=== PATIENT | male | born 1950 | race Caucasian/White ===

== ENCOUNTER → 2018-07-23 | Outpatient (CLI) | payer OTHER ==
--- NOTE | 2018-07-23 16:29 | US ---
EXAM DESCRIPTION: Soft Tissue,Extremity: ULTRASOUND. CLINICAL HISTORY: 67 years Male ARM PAIN. Left forearm pain after lifting 50 pounds. Onset 06/05/2018. COMPARISON: None Available. TECHNIQUE: Transcutaneous scanning: Bourne-scale and Doppler modes. FINDINGS: Scanning of the left forearm musculature with no dominant soft tissue mass or distinct cyst. No large calcifications or parenchymal edema. No overlying skin changes. Normal venous waveforms in the radial and ulna veins with no echogenicity and no compression. Normal triphasic arterial waveforms radial and ulnar arteries. IMPRESSION: No soft tissue masses or fluid collections in the left forearm. Normal vascularity of the radial and ulnar arteries and veins. Electronically signed by: Tim Powell MD 07/23/2018 4:27 PM WORKERS COMPENSATION CLAIMS ANALYST
== END ==
LOC: US 10:27
PROVIDERS: ATTEND Family Medicine
DX: M79.632 Pain in left forearm (principal)

== ENCOUNTER → 2018-08-13 | Outpatient (CLI) | payer OTHER ==
--- NOTE | 2018-08-13 15:25 | CT ---
EXAM DESCRIPTION: Chest w/o Contrast : Computed Tomography. CLINICAL HISTORY: 67 years Male SOB COMPARISON: None. TECHNIQUE: Spiral-axial scans at 5 x 5 mm intervals through the lungs and thorax without IV contrast. 2.5 x 5 mm lung algorithm axial reconstructions. Sagittal and coronal 2.0 Mm reconstructions. Total Exam DLP: 833.72 mGy-cm. This exam was performed according to our departmental dose-optimization program which includes automated exposure control, adjustment of the mA and/or kV according to patient size and/or use of iterative reconstruction technique; to reduce radiation dose to as low as reasonably achievable (ALARA). Nodule measurements under 10 mm are given as mean value of 3 axes diameters. FINDINGS: Lungs and large airways: Solid 5 mm subpleural nodule in the right upper lobe anterolaterally on lung axial series 4, image 41. Scattered small groundglass densities bilateral lower lobes and right upper lobe. Pleural parenchymal scarring in the bilateral bases inferior right middle lobe and lingula. Subsegmental scarring right lower lobe. 4 mm nodule abutting the lateral left major fissure and the lateral basal segment of the left lower lobe on lung axial series 4, image 89. Pleural spaces: Bilateral focal pleural thickening and pleural parenchymal scarring as described. Mediastinum and Dorys: Evaluation limited due to lack of IV contrast negative. Great vessels and Heart: Evaluation limited due to lack of IV contrast. Small atherosclerotic calcifications of the coronary vessels. Soft tissues of neck base, axillae, and chest wall: Evaluation limited due to lack of IV contrast. 1.7 cm hypointense region in the right lobe of the thyroid gland. No soft tissue masses or fluid collections. Upper abdomen: Gallbladder visualized. No free air or free fluid in the included peritoneal space. Osseous structures: Spondylosis at several levels of the thoracic and lower cervical spine. Bilateral sternoclavicular arthrosis. Mild glenohumeral arthrosis bilaterally. No blastic or lytic lesions. IMPRESSION: 1. 5 mm subpleural solid nodule right upper lobe. If patient is high risk, consider optional chest CT scan from follow-up in one year interval, according to [facility] Best Practice guidelines. Following 2017 Fleischner Society recommendations for imaging follow-up of single solid lung nodule. Please see below*. 2. 1.7 cm hypoechoic region right thyroid lobe. Recommend thyroid ultrasound according to [facility] Best Practice guidelines. Please see below. *2017 Fleischner Society Recommendations for Single Solid Lung Nodule Follow-Up based on size (average of long- and short-axis diameters) <6 mm Low-Risk Patient: No routine follow-up <6 mm High-Risk Patient: Optional CT at 12 months Nodule greater than 1.5 cm on transverse plane and the patient older than 35 years old. Recommend thyroid US. Reference: J Am Luis Eduardo Radiol. 2015 Sep;12(2): 143-50. Electronically signed by: Tim Powell MD 08/13/2018 3:24 PM [facility]
== END ==
LOC: CT 10:10
PROVIDERS: ATTEND Family Medicine
DX: R06.02 Shortness of breath (principal); R05 Cough; R91.1 Solitary pulmonary nodule

== ENCOUNTER → 2018-08-15 | Outpatient (CLI) | payer OTHER ==
--- NOTE | 2018-08-15 11:40 | US ---
EXAM DESCRIPTION: Thyroid CLINICAL HISTORY: 67 years Male, NODULE COMPARISON: CT chest August 2018 TECHNIQUE: Real-time sonographic images of the thyroid are obtained. FINDINGS: Right lobe thyroid measures 4.9 x 2.0 x 1.6 cm. A 3 mm hypoechoic solid nodule in the midpole of the right lobe thyroid is seen. Tiny 1 mm calcification in the right lobe is seen. Left lobe thyroid measures 4.0 x 1.4 x 1.5 cm. Left lobe is diffusely homogeneous and normal in echogenicity without focal cystic or solid mass. Isthmus measures 5 mm. Small lymph node in the right neck measures 2.1 x 1 0.5 cm with central fatty hilum. IMPRESSION: Small 3 mm hypoechoic nodule in the right lobe of thyroid and small calcification of the right lobe thyroid are seen. These do not meet criteria for ultrasound-guided fine-needle aspiration. Electronically signed by: Meek Abreu MD 08/15/2018 11:39 AM HEALTH TYPE TECHNICIAN
== END ==
LOC: US 10:37
PROVIDERS: ATTEND Family Medicine
DX: E04.1 Nontoxic single thyroid nodule (principal)

== ENCOUNTER → 2018-08-22 | Outpatient (CLI) | payer OTHER | LOC: GMAE 10:57 | PROVIDERS: ATTEND Family Medicine | DX: E04.1 Nontoxic single thyroid nodule (principal); Z12.5 Encounter for screening for malignant neoplasm of prostate | CPT/HCPCS: 84439; 84443; 84481; G0103 ==

== ENCOUNTER → 2018-08-27 | Outpatient (CLI) | payer OTHER ==
--- NOTE | 2018-08-27 09:28 | US ---
EXAM DESCRIPTION: Aorta CLINICAL HISTORY: 67 years Male, AAA SCREENING COMPARISON: None. Sonogram of the aorta was performed with brunson scale and color Doppler images. Measurements of diameter were obtained. FINDINGS: Proximal aorta measures 1.7 x 2.1 cm. Mid abdominal aorta measures 1.6 x 1.6 cm. The distal aorta measures 1.6 x 1.4 cm. No abdominal aortic aneurysm. Positive color flow throughout the abdominal aorta. Peak systolic velocity is 64 cm/s which is normal. Normal spectral waveform. IMPRESSION: Negative for evidence of abdominal aortic aneurysm. Electronically signed by: All Pope MD 08/27/2018 9:27 AM HAIRSPRING ASSEMBLER
== END ==
LOC: US 08:07
PROVIDERS: ATTEND Family Medicine
DX: Z13.89 Encounter for screening for other disorder (principal)

== ENCOUNTER → 2018-09-27 | Outpatient (CLI) | payer OTHER, MEDICARE ==
--- NOTE | 2018-09-27 13:36 | MRI ---
EXAM DESCRIPTION: Thoracic Spine w/o Contrast CLINICAL HISTORY: 67 years Male, RADICULOPATHY COMPARISON: CT chest 08/13/2018. TECHNIQUE: Multisequence, multiplanar images of the thoracic spine without intravenous contrast. FINDINGS: Vertebrae: No acute fracture. No acute compression deformity. There is moderate thoracic kyphosis. AP alignment is maintained. Marrow signal is within normal limits. Spinal cord: The thoracic cord is normal in signal and contour. Discs, facets, spinal canal and neural foramina: There is disc desiccation throughout the thoracic spine to the level of T9-T10. There is mild disc space narrowing within the mid to lower thoracic spine from T4-T5 through T10-T11. Spinal canal and neural foramina are patent. Paraspinous soft-tissues: Normal. IMPRESSION: 1. No acute fracture acute compression deformity. 2. Spinal canal neuroforamina predominantly patent. Electronically signed by: Buddy Toney MD 09/27/2018 1:32 PM CLEAT MAKER
--- NOTE | 2018-09-27 13:54 | MRI ---
MRI left elbow without contrast INDICATION: Forearm/elbow pain TECHNIQUE: Noncontrast MR imaging left elbow/proximal forearm FINDINGS: There is tendinopathy with high-grade nearly full-thickness tear of the insertional long head bicep. Extensive tenosynovitis. Mild tendinopathy distal brachialis tendon. No complete retraction of the distal bicep. Mild interstitial partial tear common extensor tendon indicating lateral epicondylitis. Minimal elbow effusion. Cubital tunnel is intact. No advanced muscle atrophy. Mild tendinopathy distal tricep tendon without rupture. Minimal olecranon bursal edema. IMPRESSION: High-grade nearly full-thickness tear distal bicep tendon with tenosynovitis and tendinosis Mild lateral epicondylitis without rupture. Minimal olecranon bursal edema Electronically signed by: Nishant Marcus MD 09/27/2018 1:51 PM [facility]
== END ==
LOC: MRI 06:43
PROVIDERS: ATTEND Family Medicine
DX: S46.212A Strain of muscle, fascia and tendon of other parts of biceps, left arm, initial encounter (principal); M77.12 Lateral epicondylitis, left elbow; M54.14 Radiculopathy, thoracic region

== ENCOUNTER → 2019-07-15 | Outpatient (CLI) | payer OTHER ==
--- NOTE | 2019-07-15 11:42 | RAD ---
EXAM DESCRIPTION: Shoulder,Right 2 or More Views CLINICAL HISTORY: 68 years Male, PAIN IN RIGHT SHOULDER COMPARISON: None available. FINDINGS: The visualized bones are well-mineralized.No acute fracture or dislocation. Moderate acromioclavicular joint osteoarthritis. Large subacromial spur is noted with possible impingement on the rotator cuff. The soft tissues appear grossly unremarkable. IMPRESSION: Moderate acromioclavicular joint osteoarthritis. Large subacromial spur is noted with possible impingement on the rotator cuff. Electronically signed by: Tiara Starkey MD 07/15/2019 11:40 AM [facility]
== END ==
LOC: RAD 10:08
PROVIDERS: ATTEND Family Medicine
DX: M19.011 Primary osteoarthritis, right shoulder (principal); M25.711 Osteophyte, right shoulder

== ENCOUNTER → 2020-06-08 | Outpatient (CLI) | payer OTHER | LOC: YCFC.O 15:28 | PROVIDERS: ATTEND Family Medicine | DX: Z03.818 Encounter for observation for suspected exposure to other biological agents ruled out (principal) ==